=== PATIENT | female | born 1945 | race Caucasian/White ===

== ENCOUNTER 2019-05-16 12:30 | Emergency (ER) | payer MEDICARE ==
[2019-05-16 12:56] VITALS: TEMP 98.7
[2019-05-16 14:53] LABS: Appearance,Urine Clear (Clear); Bilirubin,Urine Negative (Negative); Blood,Urine Negative (Negative); Color,Urine Yellow; Glucose,Urine (UA) Negative (Negative); Ketones,Urine Negative (Negative); Leukocyte Esterase,Urine Negative (Negative); Nitrite,Urine Negative (Negative); PH, Urine 6.5 (5.0-8.0); Protein,Urine Negative (Negative); Urobilinogen,Urine <2.0 mg/dL (<2.0)
[2019-05-16] MEDS ORDERED: SODIUM CHLORIDE 0.9% 1,000 ML IV ONE ×2 (14:59)
--- NOTE | 2019-05-16 15:14 | ED ---
General Adult HPI - General Source: patient, RN notes reviewed, old records reviewed, Caregiver Mode of arrival: ambulatory Limitations: no limitations <Rebecca Wells - Last Filed: 05/16/19 18:13> <Tyler Padilla - Last Filed: 05/16/19 18:39> - General Chief complaint: Altered Mental Status Stated complaint: altered Time Seen by Provider: 05/16/19 14:43 - History of Present Illness Initial comments: Patient is a 73-year-old female who presents emergency department today with for evaluation for confusion and changes in mental status, as well as depression and suicidal thoughts. She presents today with her sranshio-cc-iol. Patient is here visiting her wqwufjpw-wo-vvs and son over the weekend. Patient's aalrrrff-bb-buo reports today she stated that she had seen things before which the vyupyfhp-ul-iaa stated she hasn't, smiiliar to "[facility] [employer]". Upon my walking into the room Patient reports that she is seen the signwriter prior to this, but cannot state where. This is untrue. Patient reportedly has had multiple falls within the past week as well as history of chronic insomnia. Patient reports that she has not been sleeping well for many weeks. She denies any past medical history of mental illnesses but does report that she feels that she is recently suffering from increased depression and anxiety. Patient reports that she wanted to take all of her pills that were recently prescribed for her with a suspect to be a kidney infection a few weeks ago. Patient states that she also felt that she was high on her opiates that she was prescribed. Patient states that she wants to take her pills in order to kill herself. She states this is unusual for her. She does not know previous suicidal intentions. (Rebecca Wells) - Related Data Home Medications Medication Instructions Recorded Confirmed Acetaminophen Tab [Tylenol Tab] 500 mg PO Q6HR PRN 05/16/19 05/16/19 Aspirin EC [Ecotrin Low Dose] 81 mg PO DAILY 05/16/19 05/16/19 Lisinopril [Zestril] 20 mg PO DAILY 05/16/19 05/16/19 amLODIPine [Norvasc] 10 mg PO DAILY 05/16/19 05/16/19 Allergies Allergy/AdvReac Type Severity Reaction Status Date / Time No Known Allergies Allergy Verified 05/16/19 14:40 Review of Systems ROS Other: All systems not noted in ROS Statement are negative. <Rebecca Wells - Last Filed: 05/16/19 18:13> ROS Other: All systems not noted in ROS Statement are negative. <Tyler Padilla - Last Filed: 05/16/19 18:39> ROS Statement: Those systems with pertinent positive or pertinent negative responses have been documented in the HPI. Past Medical History Past Medical History: Hypertension History of Any Multi-Drug Resistant Organisms: None Reported Past Surgical History: Cholecystectomy, Hysterectomy, Tubal Ligation Past Psychological History: No Psychological Hx Reported Smoking Status: Never smoker Past Alcohol Use History: None Reported Past Drug Use History: None Reported <Rebecca Wells - Last Filed: 05/16/19 18:13> General Exam Limitations: no limitations General appearance: alert, in no apparent distress Head exam: Present: atraumatic, normocephalic, normal inspection Eye exam: Present: normal appearance, PERRL, EOMI. Absent: scleral icterus, conjunctival injection, periorbital swelling ENT exam: Present: normal exam, mucous membranes moist Neck exam: Present: normal inspection. Absent: tenderness, meningismus, lymphadenopathy Respiratory exam: Present: normal lung sounds bilaterally. Absent: respiratory distress, wheezes, rales, rhonchi, stridor Cardiovascular Exam: Present: regular rate, normal rhythm, normal heart sounds. Absent: systolic murmur, diastolic murmur, rubs, gallop, clicks GI/Abdominal exam: Present: soft, normal bowel sounds. Absent: distended, tenderness, guarding, rebound, rigid Extremities exam: Present: normal inspection, full ROM, normal capillary refill. Absent: tenderness, pedal edema, joint swelling, calf tenderness Back exam: Present: normal inspection Neurological exam: Present: alert, oriented X3, CN II-XII intact Expanded Neurological exam: Present: other (Patient reports that she has been to places where she has not been. ) Patient oriented to: Present: person, place, time Speech: Present: fluid speech Cranial nerves: EOM's Intact: Normal, Facial Sensation: Normal Cerebellar function: Finger to Nose: Normal Upper motor neuron: Pronator Drift: Normal Sensory exam: Upper Extremity Light Touch: Normal, Lower Extremity Light Touch: Normal Motor strength exam: RUE: 5, LUE: 5, RLE: 5, LLE: 5 Eye Response: (4) open spontaneously Motor Response: (6) obeys commands Verbal Response: (5) oriented Benigno Total: 15 Psychiatric exam: Present: normal mood, depressed, other (delusions of Yvette Vu. ). Absent: normal affect Skin exam: Present: warm, dry, intact, normal color. Absent: rash <LashaeRebecca turk - Last Filed: 05/16/19 18:13> - General Exam Comments Initial Comments: Alert and oriented 73-year-old female. (PriscaRebecca daniels) Course Vital Signs 05/16/19 05/16/19 05/16/19 12:51 14:55 16:24 Temperature 98.7 F Pulse Rate 92 73 65 Respiratory 16 18 16 Rate Blood Pressure 162/99 168/89 165/83 O2 Sat by Pulse 98 95 95 Oximetry Medical Decision Making - Lab Data Result diagrams: 05/16/19 15:00 05/16/19 15:00 - Radiology Data Radiology results: report reviewed <Linda Wellsily - Last Filed: 05/16/19 18:13> - Lab Data Result diagrams: 05/16/19 15:00 05/16/19 15:00 <Tyler Padilla - Last Filed: 05/16/19 18:39> - Medical Decision Making Patient is a 73-year-old female who presents emergency [facility] status, Patient of the leg statements, stating she has been to the hospital for an she has not. Patient reportedly has had significant insomnia, and complains and expressive-like symptoms. Family states she does have a history of being significant anxiety as well. At this time Patient has a normal neurological exam. He is alert and oriented today time. Patient states that she otherwise has no significant pain. Patient is given full workup. CT of the brain shows some chronic ischemic changes but no acute process. EKG and blood work was reviewed and unremarkable. No signs of UTI. Patient's case discussed with family discussed that she is medically clear and I'll have the Patient evaluated by EPS due to the suicidal thoughts and delusions. I discussed the case with Dr. Padilla. (Rebecca Wells) Patient was evaluated by myself. She was evaluated at bedside. Patient is alert and oriented 4. She answers high-level order questions accurately. Patient has no neuro deficits at bedside. Patient has baseline gait without any ataxia. Discussed patient case in detail with family who reports that patient has been having bizarre speech saying that she is seen lot of people and objects in the past when in fact she hasn't. She's been suffering from insomnia. She however has no neuro deficits. She has stable hemodynamics. She is normal physical exam. Plan was discussed with patient and family who felt comfortable taking her home. She will live under the care of her son and [id number]. Patient did allegedly make suicidal comments. She was evaluated EPS was clear for discharge. Suicide precautions were discussed with patient and patient's fa rachel. They were amenable for outpatient discharge. Patient is given outpatient psychiatric resources. They told to follow-up with primary care physician. Patient told to promote good sleep hygiene along with odwh-vel-xwejzqf medications including Benadryl and melatonin. (Tyler Padilla) - Lab Data Lab Results 05/16/19 05/16/19 05/16/19 Range/Units 14:10 14:10 15:00 WBC (3.8-10.6) k/uL RBC (3.80-5.40) m/uL Hgb (11.4-16.0) gm/dL Hct (34.0-46.0) % MCV (80.0-100.0) fL MCH (25.0-35.0) pg MCHC (31.0-37.0) g/dL RDW (11.5-15.5) % Plt Count (150-450) k/uL Neutrophils % % Lymphocytes % % Monocytes % % Eosinophils % % Basophils % % Neutrophils # (1.3-7.7) k/uL Lymphocytes # (1.0-4.8) k/uL Monocytes # (0-1.0) k/uL Eosinophils # (0-0.7) k/uL Basophils # (0-0.2) k/uL PT (9.0-12.0) sec INR (<1.2) APTT (22.0-30.0) sec Sodium (137-145) mmol/L Potassium (3.5-5.1) mmol/L Chloride (98-107) mmol/L Carbon Dioxide (22-30) mmol/L Anion Gap mmol/L BUN (7-17) mg/dL Creatinine (0.52-1.04) mg/dL Est GFR (CKD-EPI)AfAm (>60 ml/min/1.73 sqM) Est GFR (CKD-EPI)NonAf (>60 ml/min/1.73 sqM) Glucose (74-99) mg/dL POC Glucose (mg/dL) (75-99) mg/dL POC [facility] ID Calcium (8.4-10.2) mg/dL Total Bilirubin (0.2-1.3) mg/dL AST (14-36) U/L ALT (9-52) U/L Alkaline Phosphatase (38-126) U/L Ammonia <9 (<30) umol/L Troponin I (0.000-0.034) ng/mL Total Protein (6.3-8.2) g/dL Albumin (3.5-5.0) g/dL Urine Color Yellow Urine Appearance Clear (Clear) Urine pH 6.5 (5.0-8.0) Ur Specific Harmony 1.010 (1.001-1.035) Urine Protein Negative (Negative) Urine Glucose (UA) Negative (Negative) Urine Ketones Negative (Negative) Urine Blood Negative (Negative) Urine Nitrite Negative (Negative) Urine Bilirubin Negative (Negative) Urine Urobilinogen <2.0 (<2.0) mg/dL Ur Leukocyte Esterase Negative (Negative) Urine Opiates Screen Not Detected (NotDetected) Ur Oxycodone Screen Not Detected (NotDetected) Urine Methadone Screen Not Detected (NotDetected) Ur Propoxyphene Screen Not Detected (NotDetected) Ur Barbiturates Screen Not Detected (NotDetected) U Tricyclic Antidepress Not Detected (NotDetected) Ur Phencyclidine Scrn Not Detected (NotDetected) Ur Amphetamines Screen Not Detected (NotDetected) U Methamphetamines Scrn Not Detected (NotDetected) U Benzodiazepines Scrn Not Detected (NotDetected) Urine Cocaine Screen Not Detected (NotDetected) U Marijuana (THC) Screen Not Detected (NotDetected) Serum Alcohol mg/dL 05/16/19 05/16/19 05/16/19 Range/Units 15:00 15:00 15:00 WBC 9.3 (3.8-10.6) k/uL RBC 4.90 (3.80-5.40) m/uL Hgb 14.9 (11.4-16.0) gm/dL Hct 45.4 (34.0-46.0) % MCV 92.5 (80.0-100.0) fL MCH 30.3 (25.0-35.0) pg MCHC 32.7 (31.0-37.0) g/dL RDW 13.9 (11.5-15.5) % Plt Count 248 (150-450) k/uL Neutrophils % 81 % Lymphocytes % 12 % Monocytes % 5 % Eosinophils % 1 % Basophils % 0 % Neutrophils # 7.5 (1.3-7.7) k/uL Lymphocytes # 1.2 (1.0-4.8) k/uL Monocytes # 0.4 (0-1.0) k/uL Eosinophils # 0.1 (0-0.7) k/uL Basophils # 0.0 (0-0.2) k/uL PT 10.4 (9.0-12.0) sec INR 1.0 (<1.2) APTT 22.1 (22.0-30.0) sec Sodium 136 L (137-145) mmol/L Potassium 4.6 (3.5-5.1) mmol/L Chloride 100 (98-107) mmol/L Carbon Dioxide 27 (22-30) mmol/L Anion Gap 9 mmol/L BUN 18 H (7-17) mg/dL Creatinine 0.65 (0.52-1.04) mg/dL Est GFR (CKD-EPI)AfAm >90 (>60 ml/min/1.73 sqM) Est GFR (CKD-EPI)NonAf 87 (>60 ml/min/1.73 sqM) Glucose 115 H (74-99) mg/dL POC Glucose (mg/dL) (75-99) mg/dL POC [facility] ID Calcium 9.6 (8.4-10.2) mg/dL Total Bilirubin 0.9 (0.2-1.3) mg/dL AST 27 (14-36) U/L ALT 35 (9-52) U/L Alkaline Phosphatase 79 (38-126) U/L Ammonia (<30) umol/L Troponin I (0.000-0.034) ng/mL Total Protein 6.9 (6.3-8.2) g/dL Albumin 4.3 (3.5-5.0) g/dL Urine Color Urine Appearance (Clear) Urine pH (5.0-8.0) Ur Specific Harmony (1.001-1.035) Urine Protein (Negative) Urine Glucose (UA) (Negative) Urine Ketones (Negative) Urine Blood (Negative) Urine Nitrite (Negative) Urine Bilirubin (Negative) Urine Urobilinogen (<2.0) mg/dL Ur Leukocyte Esterase (Negative) Urine Opiates Screen (NotDetected) Ur Oxycodone Screen (NotDetected) Urine Methadone Screen (NotDetected) Ur Propoxyphene Screen (NotDetected) Ur Barbiturates Screen (NotDetected) U Tricyclic Antidepress (NotDetected) Ur Phencyclidine Scrn (NotDetected) Ur Amphetamines Screen (NotDetected) U Methamphetamines Scrn (NotDetected) U Benzodiazepines Scrn (NotDetected) Urine Cocaine Screen (NotDetected) U Marijuana (THC) Screen (NotDetected) Serum Alcohol <10 mg/dL 05/16/19 05/16/19 Range/Units 15:00 16:29 WBC (3.8-10.6) k/uL RBC (3.80-5.40) m/uL Hgb (11.4-16.0) gm/dL Hct (34.0-46.0) % MCV (80.0-100.0) fL MCH (25.0-35.0) pg MCHC (31.0-37.0) g/dL RDW (11.5-15.5) % Plt Count (150-450) k/uL Neutrophils % % Lymphocytes % % Monocytes % % Eosinophils % % Basophils % % Neutrophils # (1.3-7.7) k/uL Lymphocytes # (1.0-4.8) k/uL Monocytes # (0-1.0) k/uL Eosinophils # (0-0.7) k/uL Basophils # (0-0.2) k/uL PT (9.0-12.0) sec INR (<1.2) APTT (22.0-30.0) sec Sodium (137-145) mmol/L Potassium (3.5-5.1) mmol/L Chloride (98-107) mmol/L Carbon Dioxide (22-30) mmol/L Anion Gap mmol/L BUN (7-17) mg/dL Creatinine (0.52-1.04) mg/dL Est GFR (CKD-EPI)AfAm (>60 ml/min/1.73 sqM) Est GFR (CKD-EPI)NonAf (>60 ml/min/1.73 sqM) Glucose (74-99) mg/dL POC Glucose (mg/dL) 91 (75-99) mg/dL POC [facility] ID Chata Blevins Calcium (8.4-10.2) mg/dL Total Bilirubin (0.2-1.3) mg/dL AST (14-36) U/L ALT (9-52) U/L Alkaline Phosphatase (38-126) U/L Ammonia (<30) umol/L Troponin I <0.012 (0.000-0.034) ng/mL Total Protein (6.3-8.2) g/dL Albumin (3.5-5.0) g/dL Urine Color Urine Appearance (Clear) Urine pH (5.0-8.0) Ur Specific Harmony (1.001-1.035) Urine Protein (Negative) Urine Glucose (UA) (Negative) Urine Ketones (Negative) Urine Blood (Negative) Urine Nitrite (Negative) Urine Bilirubin (Negative) Urine Urobilinogen (<2.0) mg/dL Ur Leukocyte Esterase (Negative) Urine Opiates Screen (NotDetected) Ur Oxycodone Screen (NotDetected) Urine Methadone Screen (NotDetected) Ur Propoxyphene Screen (NotDetected) Ur Barbiturates Screen (NotDetected) U Tricyclic Antidepress (NotDetected) Ur Phencyclidine Scrn (NotDetected) Ur Amphetamines Screen (NotDetected) U Methamphetamines Scrn (NotDetected) U Benzodiazepines Scrn (NotDetected) Urine Cocaine Screen (NotDetected) U Marijuana (THC) Screen (NotDetected) Serum Alcohol mg/dL 05/16/19 17:31 EKG shows sinus rhythm. Ventricular septal itching or complexes occasional PVCs. Moderate voltage criteria for LVH. Portable an EKG noted. Ventricular rate of 77 beats were minute period. Intervals 160 most seconds. QS duration 70 ms. QT QTC 390/441 ms. (Rebecca Wells) - Radiology Data CT of the brain shows chronic ischemic changes. Chest x-ray is negative for any acute cardio pulmonary process. (Rebecca Wells) Disposition <Rebecca Wells - Last Filed: 05/16/19 18:13> Is patient prescribed a controlled substance at d/c from ED?: No Time of Disposition: 18:39 <Tyler Padilla - Last Filed: 05/16/19 18:39> Clinical Impression: Altered mental status, Insomnia Disposition: HOME SELF-CARE Condition: Good Instructions (If sedation given, give patient instructions): Insomnia (ED) Referrals: Nonstaff,Physician [Primary Care Provider] - 1-2 days
[2019-05-16 15:18] LABS: Basophils % (A) 0 %; Eosinophils # (A) 0.1 k/uL (0-0.7); Eosinophils % (A) 1 %; HCT 45.4 % (34.0-46.0); HGB 14.9 gm/dL (11.4-16.0); Lymphocytes # (A) 1.2 k/uL (1.0-4.8); Lymphocytes % (A) 12 %; MCH 30.3 pg (25.0-35.0); MCHC 32.7 g/dL (31.0-37.0); MCV 92.5 fL (80.0-100.0); Monocytes # (A) 0.4 k/uL (0-1.0); Monocytes % (A) 5 %; Neutrophils # (A) 7.5 k/uL (1.3-7.7); Neutrophils % (A) 81 %; Platelet Count 248 k/uL (150-450); RDW 13.9 % (11.5-15.5); WBC 9.3 k/uL (3.8-10.6)
[2019-05-16 15:24] LABS: Cocaine Screen,Urine Not Detected (NotDetected); Opiate Screen,Urine Not Detected (NotDetected); Phencyclidine Screen,Urine Not Detected (NotDetected); Urn Cannabinoid Scrn Not Detected (NotDetected)
[2019-05-16 15:25] LABS: Amphetamine Screen,Urine Not Detected (NotDetected); Barbiturate Screen,Urine Not Detected (NotDetected); Benzodiazepines Screen,Urine Not Detected (NotDetected); Methadone Screen, Urine Not Detected (NotDetected); Oxycodone Screen, Urine Not Detected (NotDetected); Tricyclic Antidepressant,Urine Not Detected (NotDetected)
[2019-05-16 15:26] LABS: ALT 35 U/L (9-52); AST 27 U/L (14-36); African American GFR (CKD) >90 (>60 ml/min/1.73 sqM); Albumin 4.3 g/dL (3.5-5.0); Alcohol <10 mg/dL; Alkaline Phosphatase 79 U/L (38-126); Anion Gap 9 mmol/L; Blood Urea Nitrogen 18 mg/dL (7-17); Calcium 9.6 mg/dL (8.4-10.2); Carbon Dioxide 27 mmol/L (22-30); Chloride 100 mmol/L (98-107); Glucose 115 mg/dL (74-99); Potassium 4.6 mmol/L (3.5-5.1); Sodium 136 mmol/L (137-145); Total Bilirubin 0.9 mg/dL (0.2-1.3); Total Protein 6.9 g/dL (6.3-8.2)
[2019-05-16 15:27] LABS: Partial Thromboplastin Time 22.1 sec (22.0-30.0); Prothrombin Time 10.4 sec (9.0-12.0)
--- NOTE | 2019-05-16 16:03 | CT ---
EXAMINATION TYPE: CT brain wo con DATE OF EXAM: 05/16/2019 COMPARISON: None INDICATION: Altered mental status. DLP: 1105.4 mGycm, Automated exposure control for dose reduction was used. CONTRAST: None CT of the brain is performed utilizing 3 mm thick sections through the posterior fossa and 3 mm thick sections through the remaining calvarium. Study is performed within 24 hours of arrival to the hosp [facility]. No abnormal hyperdensity is present to suggest an acute intracranial hemorrhage. No mass lesion is evident. No acute infarcts are evident. I'll periventricular white matter hypodensity is present, likely on th e basis of chronic white matter ischemic changes. Ventricles and sulci are appropriate for the patient age. Paranasal sinuses and mastoid air cells within the [id number] are clear. IMPRESSIONS: 1. Mild chronic appearing white matter ischemic changes.
[2019-05-16 16:26] VITALS: BP 165/83; PULSE 65; RESP 16
[2019-05-16 16:30] LABS: Glucose,Whole Blood 91 mg/dL (75-99)
--- NOTE | 2019-05-16 16:31 | XR ---
EXAMINATION TYPE: XR chest 2V DATE OF EXAM: 05/16/2019 COMPARISON: None INDICATION: Altered mental status TECHNIQUE: Frontal and lateral views of the chest are obtained. FINDINGS: The heart size is normal. The pulmonary vasculature is normal. The lungs are clear. IMPRESSION: 1. No acute pulmonary process.
== END 2019-05-16 19:35 | disposition home or self-care (01) ==
LOC: EC 12:30
DX: R41.82 Altered mental status, unspecified (principal); G47.00 Insomnia, unspecified; R93.89 Abnormal findings on diagnostic imaging of other specified body structures; R45.851 Suicidal ideations; F32.9 Major depressive disorder, single episode, unspecified; R29.6 Repeated falls; I10 Essential (primary) hypertension; Z79.82 Long term (current) use of aspirin; Z79.899 Other long term (current) drug therapy
CPT/HCPCS: 36415; 80053; 82140; 84484; 85025; 85610; 85730; 81003; 80306; 71046; 70450; 99285; 96360; 96361 ×2; G0480; 80320

== ENCOUNTER 2019-05-19 07:52 | Inpatient (IN) | payer MEDICARE ==
[2019-05-19] MEDS ORDERED: SODIUM CHLORIDE 0.9% 1,000 ML IV ONE (08:22)
[2019-05-19] MEDS ORDERED: SODIUM CHLORIDE 0.9% 500 ML 500 ML IV ONE (08:22)
[2019-05-19 08:43] LABS: Glucose,Whole Blood 118 mg/dL (75-99)
[2019-05-19 08:52] LABS: Basophils % (A) 0 %; Eosinophils # (A) 0.1 k/uL (0-0.7); Eosinophils % (A) 1 %; HCT 45.9 % (34.0-46.0); HGB 15.2 gm/dL (11.4-16.0); Lymphocytes % (A) 11 %; MCH 31.1 pg (25.0-35.0); Mean Platelet Volume 6.5; Monocytes # (A) 0.4 k/uL (0-1.0); Monocytes % (A) 4 %; Neutrophils # (A) 7.3 k/uL (1.3-7.7); Neutrophils % (A) 83 %; Platelet Count 228 k/uL (150-450); RBC 4.88 m/uL (3.80-5.40); RDW 13.1 % (11.5-15.5); WBC 8.8 k/uL (3.8-10.6)
[2019-05-19 09:05] LABS: ALT 32 U/L (9-52); AST 36 U/L (14-36); African American GFR (CKD) >90 (>60 ml/min/1.73 sqM); Albumin 4.3 g/dL (3.5-5.0); Alkaline Phosphatase 65 U/L (38-126); Anion Gap 10 mmol/L; Blood Urea Nitrogen 17 mg/dL (7-17); Calcium 9.4 mg/dL (8.4-10.2); Carbon Dioxide 26 mmol/L (22-30); Chloride 102 mmol/L (98-107); Creatine Kinase 56 U/L (30-135); Glucose 122 mg/dL (74-99); Sodium 138 mmol/L (137-145); Total Bilirubin 1.1 mg/dL (0.2-1.3); Total Protein 7.1 g/dL (6.3-8.2)
[2019-05-19 09:06] LABS: INR 0.9 (<1.2); Prothrombin Time 10.2 sec (9.0-12.0)
--- NOTE | 2019-05-19 09:08 | ED ---
Altered Mental Status HPI - General Chief Complaint: Altered Mental Status Stated Complaint: Confusion Time Seen by Provider: 05/19/19 08:10 Source: patient, family, RN notes reviewed, old records reviewed Mode of arrival: ambulatory Limitations: altered mental status - History of Present Illness Initial Comments: This is a 73-year-old female was brought in by her family for evaluation for altered mental status. He states she's been having insomnia not sleeping very well she is state he has she sees people who weren't there. He insisted that she needs to go back to a restaurant to prove that her. Upon my evaluation the patient insists that she is not May before and knows me and I have asked her same questions alive never met the patient before. No reports of any trauma no fevers chills nausea vomiting sweats. The patient was here 3 days ago for evaluation was discharged from patient they've been unable in with patient's primary care doctor who is currently apparently on vacation. Per family the patient was recently given for new medications are unaware with the medications were. He felt one was for urinary tract infection. MD Complaint: altered mental status - Related Data Home Medications Medication Instructions Recorded Confirmed Aspirin EC [Ecotrin Low Dose] 81 mg PO DAILY 05/16/19 05/19/19 Lisinopril [Zestril] 20 mg PO DAILY 05/16/19 05/19/19 amLODIPine [Norvasc] 10 mg PO DAILY 05/16/19 05/19/19 Latanoprost [Xalatan 0.005%] 1 drop BOTH EYES HS 05/19/19 05/19/19 Allergies Allergy/AdvReac Type Severity Reaction Status Date / Time No Known Allergies Allergy Verified 05/19/19 08:46 Review of Systems ROS Statement: Those systems with pertinent positive or pertinent negative responses have been documented in the HPI. ROS Other: All systems not noted in ROS Statement are negative. Past Medical History Past Medical History: Hypertension Additional Past Medical History / Comment(s): glaucoma History of Any Multi-Drug Resistant Organisms: None Reported Past Surgical History: Cholecystectomy, Hysterectomy, Tubal Ligation Past Psychological History: No Psychological Hx Reported Smoking Status: Never smoker Past Alcohol Use History: None Reported Past Drug Use History: None Reported General Exam - General Exam Comments Initial Comments: This is a well-developed with sciatica. Female who is awake alert and oriented 3 but does perseverate with questioning Limitations: altered mental status General appearance: alert, in no apparent distress Head exam: Present: atraumatic, normocephalic, normal inspection Eye exam: Present: normal appearance, PERRL, EOMI. Absent: scleral icterus, conjunctival injection, periorbital swelling ENT exam: Present: mucous membranes dry Neck exam: Present: normal inspection. Absent: tenderness, meningismus, lymphadenopathy Respiratory exam: Present: normal lung sounds bilaterally. Absent: respiratory distress, wheezes, rales, rhonchi, stridor Cardiovascular Exam: Present: regular rate, normal rhythm, normal heart sounds. Absent: systolic murmur, diastolic murmur, rubs, gallop, clicks GI/Abdominal exam: Present: soft, normal bowel sounds. Absent: distended, tenderness, guarding, rebound, rigid Extremities exam: Present: normal inspection, full ROM, normal capillary refill. Absent: tenderness, pedal edema, joint swelling, calf tenderness Back exam: Present: normal inspection Neurological exam: Present: alert, oriented X3, CN II-XII intact Psychiatric exam: Present: other (She does demonstrate a flight of ideas.) Skin exam: Present: warm, dry, intact, normal color. Absent: rash Course Vital Signs 05/19/19 05/19/19 05/19/19 07:55 09:00 09:30 Temperature 98.4 F Pulse Rate 87 77 71 Respiratory 18 19 16 Rate Blood Pressure 160/86 145/82 158/86 O2 Sat by Pulse 98 97 98 Oximetry 05/19/19 05/19/19 10:00 10:30 Temperature Pulse Rate 66 65 Respiratory 18 19 Rate Blood Pressure 111/76 118/89 O2 Sat by Pulse 99 99 Oximetry Medical Decision Making - Medical Decision Making Patient was evaluated by psychiatric service and will be admitted for inpatient treatment. - Lab Data Result diagrams: 05/19/19 08:36 05/19/19 08:36 Lab Results 05/19/19 05/19/19 05/19/19 Range/Units 08:31 08:36 08:36 WBC 8.8 (3.8-10.6) k/uL RBC 4.88 (3.80-5.40) m/uL Hgb 15.2 (11.4-16.0) gm/dL Hct 45.9 (34.0-46.0) % MCV 94.0 (80.0-100.0) fL MCH 31.1 (25.0-35.0) pg MCHC 33.0 (31.0-37.0) g/dL RDW 13.1 (11.5-15.5) % Plt Count 228 (150-450) k/uL Neutrophils % 83 % Lymphocytes % 11 % Monocytes % 4 % Eosinophils % 1 % Basophils % 0 % Neutrophils # 7.3 (1.3-7.7) k/uL Lymphocytes # 1.0 (1.0-4.8) k/uL Monocytes # 0.4 (0-1.0) k/uL Eosinophils # 0.1 (0-0.7) k/uL Basophils # 0.0 (0-0.2) k/uL PT (9.0-12.0) sec INR (<1.2) APTT (22.0-30.0) sec Sodium (137-145) mmol/L Potassium (3.5-5.1) mmol/L Chloride (98-107) mmol/L Carbon Dioxide (22-30) mmol/L Anion Gap mmol/L BUN (7-17) mg/dL Creatinine (0.52-1.04) mg/dL Est GFR (CKD-EPI)AfAm (>60 ml/min/1.73 sqM) Est GFR (CKD-EPI)NonAf (>60 ml/min/1.73 sqM) Glucose (74-99) mg/dL POC Glucose (mg/dL) 118 H (75-99) mg/dL POC Glu Automatic Vulcanizing Lead Operator [place] Calcium (8.4-10.2) mg/dL Magnesium (1.6-2.3) mg/dL Total Bilirubin (0.2-1.3) mg/dL AST (14-36) U/L ALT (9-52) U/L Alkaline Phosphatase (38-126) U/L Ammonia <9 (<30) umol/L Creatine Kinase (30-135) U/L Troponin I (0.000-0.034) ng/mL Total Protein (6.3-8.2) g/dL Albumin (3.5-5.0) g/dL TSH (0.465-4.680) mIU/L Urine Color Urine Appearance (Clear) Urine pH (5.0-8.0) Ur Specific [place] (1.001-1.035) Urine Protein (Negative) Urine Glucose (UA) (Negative) Urine Ketones (Negative) Urine Blood (Negative) Urine Nitrite (Negative) Urine Bilirubin (Negative) Urine Urobilinogen (<2.0) mg/dL Ur Leukocyte Esterase (Negative) Urine Opiates Screen (NotDetected) Ur Oxycodone Screen (NotDetected) Urine Methadone Screen (NotDetected) Ur Propoxyphene Screen (NotDetected) Ur Barbiturates Screen (NotDetected) U Tricyclic Antidepress (NotDetected) Ur Phencyclidine Scrn (NotDetected) Ur Amphetamines Screen (NotDetected) U Methamphetamines Scrn (NotDetected) U Benzodiazepines Scrn (NotDetected) Urine Cocaine Screen (NotDetected) U Marijuana (THC) Screen (NotDetected) 05/19/19 05/19/19 05/19/19 Range/Units 08:36 08:36 08:36 WBC (3.8-10.6) k/uL RBC (3.80-5.40) m/uL Hgb (11.4-16.0) gm/dL Hct (34.0-46.0) % MCV (80.0-100.0) fL MCH (25.0-35.0) pg MCHC (31.0-37.0) g/dL RDW (11.5-15.5) % Plt Count (150-450) k/uL Neutrophils % % Lymphocytes % % Monocytes % % Eosinophils % % Basophils % % Neutrophils # (1.3-7.7) k/uL Lymphocytes # (1.0-4.8) k/uL Monocytes # (0-1.0) k/uL Eosinophils # (0-0.7) k/uL Basophils # (0-0.2) k/uL PT 10.2 (9.0-12.0) sec INR 0.9 (<1.2) APTT 21.5 L (22.0-30.0) sec Sodium 138 (137-145) mmol/L Potassium 5.0 (3.5-5.1) mmol/L Chloride 102 (98-107) mmol/L Carbon Dioxide 26 (22-30) mmol/L Anion Gap 10 mmol/L BUN 17 (7-17) mg/dL Creatinine 0.55 (0.52-1.04) mg/dL Est GFR (CKD-EPI)AfAm >90 (>60 ml/min/1.73 sqM) Est GFR (CKD-EPI)NonAf >90 (>60 ml/min/1.73 sqM) Glucose 122 H (74-99) mg/dL POC Glucose (mg/dL) (75-99) mg/dL POC Glu Automatic Vulcanizing Lead Operator [place] Calcium 9.4 (8.4-10.2) mg/dL Magnesium 2.0 (1.6-2.3) mg/dL Total Bilirubin 1.1 (0.2-1.3) mg/dL AST 36 (14-36) U/L ALT 32 (9-52) U/L Alkaline Phosphatase 65 (38-126) U/L Ammonia (<30) umol/L Creatine Kinase 56 (30-135) U/L Troponin I <0.012 (0.000-0.034) ng/mL Total Protein 7.1 (6.3-8.2) g/dL Albumin 4.3 (3.5-5.0) g/dL TSH 2.530 (0.465-4.680) mIU/L Urine Color Urine Appearance (Clear) Urine pH (5.0-8.0) Ur Specific [place] (1.001-1.035) Urine Protein (Negative) Urine Glucose (UA) (Negative) Urine Ketones (Negative) Urine Blood (Negative) Urine Nitrite (Negative) Urine Bilirubin (Negative) Urine Urobilinogen (<2.0) mg/dL Ur Leukocyte Esterase (Negative) Urine Opiates Screen (NotDetected) Ur Oxycodone Screen (NotDetected) Urine Methadone Screen (NotDetected) Ur Propoxyphene Screen (NotDetected) Ur Barbiturates Screen (NotDetected) U Tricyclic Antidepress (NotDetected) Ur Phencyclidine Scrn (NotDetected) Ur Amphetamines Screen (NotDetected) U Methamphetamines Scrn (NotDetected) U Benzodiazepines Scrn (NotDetected) Urine Cocaine Screen (NotDetected) U Marijuana (THC) Screen (NotDetected) 05/19/19 Range/Units 09:46 WBC (3.8-10.6) k/uL RBC (3.80-5.40) m/uL Hgb (11.4-16.0) gm/dL Hct (34.0-46.0) % MCV (80.0-100.0) fL MCH (25.0-35.0) pg MCHC (31.0-37.0) g/dL RDW (11.5-15.5) % Plt Count (150-450) k/uL Neutrophils % % Lymphocytes % % Monocytes % % Eosinophils % % Basophils % % Neutrophils # (1.3-7.7) k/uL Lymphocytes # (1.0-4.8) k/uL Monocytes # (0-1.0) k/uL Eosinophils # (0-0.7) k/uL Basophils # (0-0.2) k/uL PT (9.0-12.0) sec INR (<1.2) APTT (22.0-30.0) sec Sodium (137-145) mmol/L Potassium (3.5-5.1) mmol/L Chloride (98-107) mmol/L Carbon Dioxide (22-30) mmol/L Anion Gap mmol/L BUN (7-17) mg/dL Creatinine (0.52-1.04) mg/dL Est GFR (CKD-EPI)AfAm (>60 ml/min/1.73 sqM) Est GFR (CKD-EPI)NonAf (>60 ml/min/1.73 sqM) Glucose (74-99) mg/dL POC Glucose (mg/dL) (75-99) mg/dL POC Glu Automatic Vulcanizing Lead Operator [place] Calcium (8.4-10.2) mg/dL Magnesium (1.6-2.3) mg/dL Total Bilirubin (0.2-1.3) mg/dL AST (14-36) U/L ALT (9-52) U/L Alkaline Phosphatase (38-126) U/L Ammonia (<30) umol/L Creatine Kinase (30-135) U/L Troponin I (0.000-0.034) ng/mL Total Protein (6.3-8.2) g/dL Albumin (3.5-5.0) g/dL TSH (0.465-4.680) mIU/L Urine Color Light Yellow Urine Appearance Clear (Clear) Urine pH 7.0 (5.0-8.0) Ur Specific [place] 1.005 (1.001-1.035) Urine Protein Negative (Negative) Urine Glucose (UA) Negative (Negative) Urine Ketones Negative (Negative) Urine Blood Negative (Negative) Urine Nitrite Negative (Negative) Urine Bilirubin Negative (Negative) Urine Urobilinogen <2.0 (<2.0) mg/dL Ur Leukocyte Esterase Negative (Negative) Urine Opiates Screen Not Detected (NotDetected) Ur Oxycodone Screen Not Detected (NotDetected) Urine Methadone Screen Not Detected (NotDetected) Ur Propoxyphene Screen Not Detected (NotDetected) Ur Barbiturates Screen Not Detected (NotDetected) U Tricyclic Antidepress Not Detected (NotDetected) Ur Phencyclidine Scrn Not Detected (NotDetected) Ur Amphetamines Screen Not Detected (NotDetected) U Methamphetamines Scrn Not Detected (NotDetected) U Benzodiazepines Scrn Not Detected (NotDetected) Urine Cocaine Screen Not Detected (NotDetected) U Marijuana (THC) Screen Not Detected (NotDetected) - EKG Data -: EKG Interpreted by Me EKG shows normal: sinus rhythm (Sinus rhythm a 73. We'll 168 QRS duration 86 QT since QTC 374/417 left exodeviation LVH nonspecific anterior changes) - Radiology Data Radiology results: report reviewed (I did review the imaging and reports no acute findings), image reviewed Disposition Clinical Impression: Delirium due to general medical condition, Psychosis Disposition: TRANSFER TO PSYCH HOSP/UNIT Condition: Stable Referrals: Nonstaff,Physician [Primary Care Provider] - 1-2 days
[2019-05-19 09:16] LABS: Partial Thromboplastin Time 21.5 sec (22.0-30.0)
[2019-05-19 10:01] LABS: Appearance,Urine Clear (Clear); Bilirubin,Urine Negative (Negative); Blood,Urine Negative (Negative); Color,Urine Light Yellow; Glucose,Urine (UA) Negative (Negative); Ketones,Urine Negative (Negative); Leukocyte Esterase,Urine Negative (Negative); Nitrite,Urine Negative (Negative); Protein,Urine Negative (Negative); Specific Gravity,Urine 1.005 (1.001-1.035); Urobilinogen,Urine <2.0 mg/dL (<2.0)
[2019-05-19 10:13] LABS: Amphetamine Screen,Urine Not Detected (NotDetected); Barbiturate Screen,Urine Not Detected (NotDetected); Benzodiazepines Screen,Urine Not Detected (NotDetected); Cocaine Screen,Urine Not Detected (NotDetected); Methadone Screen, Urine Not Detected (NotDetected); Opiate Screen,Urine Not Detected (NotDetected); Oxycodone Screen, Urine Not Detected (NotDetected); Phencyclidine Screen,Urine Not Detected (NotDetected); Tricyclic Antidepressant,Urine Not Detected (NotDetected); Urn Cannabinoid Scrn Not Detected (NotDetected)
--- NOTE | 2019-05-19 10:25 | XR ---
EXAMINATION TYPE: XR chest 2V DATE OF EXAM: 05/19/2019 COMPARISON: 05/16/2019 INDICATION: Confusion TECHNIQUE: Frontal and lateral views of the chest are obtained. FINDINGS: The heart size is normal. The pulmonary vasculature is normal. The lungs are clear. IMPRESSION: 1. No acute pulmonary process.
[2019-05-19] MEDS ORDERED: MAG HYDROX/AL HYDROX/SIMETH 30 ML CUP PO PRN (13:12)
[2019-05-19] MEDS ORDERED: MAGNESIUM HYDROXIDE 2,400 MG/10 ML CUP PO PRN (13:12)
[2019-05-19] MEDS ORDERED: ACETAMINOPHEN TAB 325 MG TAB PO PRN (13:12)
[2019-05-19 13:45] VITALS: BMI 26.6
--- NOTE | 2019-05-19 15:59 | P.CONS ---
History of Present Illness - Reason for Consult Consult date: 05/19/19 - Chief Complaint Medical management - History of Present Illness Patient is a 73-year-old white female admitted to the hospital with altered mental status. She has been complaining of insomnia. She attributes her delusion to insomnia. At the time of examination patient is awake alert oriented 3 and does not appear to be in distress. She denies chest pain, no abdominal pain, no nausea no vomiting no shortness of breath. Review of Systems 10 systems reviewed pertinent positive and negative findings as in HPI, no chest pain or abdominal pain. Past Medical History Past Medical History: Hypertension Additional Past Medical History / Comment(s): glaucoma History of Any Multi-Drug Resistant Organisms: None Reported Past Surgical History: Cholecystectomy, Hysterectomy, Tubal Ligation Past Psychological History: No Psychological Hx Reported Smoking Status: Never smoker Past Alcohol Use History: None Reported Past Drug Use History: None Reported Medications and Allergies Home Medications Medication Instructions Recorded Confirmed Type Aspirin EC [Ecotrin Low Dose] 81 mg PO DAILY 05/16/19 05/19/19 History Lisinopril [Zestril] 20 mg PO DAILY 05/16/19 05/19/19 History amLODIPine [Norvasc] 10 mg PO DAILY 05/16/19 05/19/19 History Latanoprost [Xalatan 0.005%] 1 drop BOTH EYES HS 05/19/19 05/19/19 History Allergies Allergy/AdvReac Type Severity Reaction Status Date / Time No Known Allergies Allergy Verified 05/19/19 14:07 Physical Exam Vitals: Vital Signs Temp Pulse Pulse Resp BP BP Pulse Ox 05/19/19 13:42 97.3 F L 75 20 173/93 97 05/19/19 13:22 97.3 F L 75 20 173/93 97 05/19/19 13:03 74 18 170/80 99 05/19/19 10:30 65 19 118/89 99 05/19/19 10:00 66 18 111/76 99 05/19/19 09:30 71 16 158/86 98 05/19/19 09:00 77 19 145/82 97 05/19/19 07:55 98.4 F 87 18 160/86 98 Intake and Output 05/19/19 05/19/19 05/19/19 06:59 14:59 22:59 Other: Weight 64 kg Constitutional: No acute distress, conversant, pleasant Eyes: Anicteric sclerae, PERRLA ENMT: NC/AT,Oropharynx clear, no erythema, exudates Neck:Supple, No thyromegaly Lungs: Clear to auscultation, Clear to percussion, Normal respiratory effort Cardiovascular: Heart regular in rate and rhythm, No murmurs, gallops, or rubs no peripheral edema Abdominal: Soft Nontender, nom distended, no guarding, no rebound or rigidity, Normoactive bowel sounds Skin: Normal temperature, tone, texture, turgor, No induration Extremities:No digital cyanosis No clubbing, Pedal pulses intact and symmetric al Radial pulses intact and symmetrical Normal gait and station, No calf tenderness Psychiatric: Alert and oriented to person, place and time, Appropriate affect Intact judgement Neuro: Muscles Strength 5/5 in all 4 extremities, Sensation to light touch grossly present throughout, Cranial nerves II-XII grossly intact. No focal sensory deficits Results CBC & Chem 7: 05/19/19 08:36 05/19/19 08:36 Labs: Abnormal Lab Results - Last 24 Hours (Table) 05/19/19 05/19/19 05/19/19 Range/Units 08:31 08:36 08:36 APTT 21.5 L (22.0-30.0) sec Glucose 122 H (74-99) mg/dL POC Glucose (mg/dL) 118 H (75-99) mg/dL Assessment and Plan Plan: 1. Delirium with psychoses: Psychiatry managing. 2. Essential hypertension: Continue lisinopril and Norvasc 3. History of glaucoma: Continue latanoprost Thank for the consultation
[2019-05-19] MEDS: LATANOPROST 0.005% OPHTH DROPS 2.5 ML BTL BOTH EYES SCH (21:24)
[2019-05-19] MEDS ORDERED: MELATONIN 3 MG TABLET PO SCH (22:30)
[2019-05-19] MEDS ORDERED: POLYETHYLENE GLYCOL 3350 17 GM POWD.PACK PO PRN (23:50)
[2019-05-20] MEDS: DOCUSATE 100 MG CAP PO SCH ×3 (08:25→20:33)
[2019-05-20] MEDS: ASPIRIN 81 MG PO SCH (08:25)
[2019-05-20] MEDS: LISINOPRIL 20 MG TAB PO SCH (08:25)
[2019-05-20] MEDS: amLODIPine 10 MG TAB PO SCH (08:25)
[2019-05-20 08:56] LABS: Basophils % (A) 0 %; Eosinophils # (A) 0.1 k/uL (0-0.7); Eosinophils % (A) 1 %; HCT 45.4 % (34.0-46.0); HGB 14.5 gm/dL (11.4-16.0); Lymphocytes # (A) 1.3 k/uL (1.0-4.8); Lymphocytes % (A) 16 %; MCH 30.4 pg (25.0-35.0); MCHC 31.9 g/dL (31.0-37.0); MCV 95.3 fL (80.0-100.0); Mean Platelet Volume 6.7; Monocytes # (A) 0.3 k/uL (0-1.0); Monocytes % (A) 4 %; Neutrophils # (A) 6.1 k/uL (1.3-7.7); Neutrophils % (A) 78 %; Platelet Count 222 k/uL (150-450); RBC 4.76 m/uL (3.80-5.40); RDW 13.1 % (11.5-15.5); WBC 7.9 k/uL (3.8-10.6)
[2019-05-20 09:27] LABS: ALT 25 U/L (9-52); AST 24 U/L (14-36); African American GFR (CKD) >90 (>60 ml/min/1.73 sqM); Alkaline Phosphatase 66 U/L (38-126); Anion Gap 7 mmol/L; Blood Urea Nitrogen 15 mg/dL (7-17); Calcium 9.2 mg/dL (8.4-10.2); Carbon Dioxide 29 mmol/L (22-30); Chloride 101 mmol/L (98-107); Cholesterol 208 mg/dL (<200); Glucose 191 mg/dL (74-99); HDL Cholesterol 86 mg/dL (40-60); LDL Cholesterol,Calculated 114 mg/dL (0-99); Potassium 5.1 mmol/L (3.5-5.1); Sodium 137 mmol/L (137-145); Total Bilirubin 0.9 mg/dL (0.2-1.3); Total Protein 6.5 g/dL (6.3-8.2); Triglycerides 42 mg/dL (<150)
--- NOTE | 2019-05-20 11:39 | P.HP ---
Psychiatric H&P - . History & Physical: Allergies Allergy/AdvReac Type Severity Reaction Status Date / Time No Known Allergies Allergy Verified 05/19/19 14:07 Vital Signs Temp 97.3 F L 05/19/19 13:42 Pulse 118 H 05/19/19 20:13 Resp 20 05/19/19 13:42 BP 108/68 05/19/19 20:13 Pulse Ox 97 05/19/19 13:42 Intake & Output 05/19/19 05/20/19 05/20/19 18:59 06:59 18:59 Weight 64 kg Laboratory Last Values WBC 7.9 k/uL (3.8-10.6) 05/20/19 08:30 RBC 4.76 m/uL (3.80-5.40) 05/20/19 08:30 Hgb 14.5 gm/dL (11.4-16.0) 05/20/19 08:30 Hct 45.4 % (34.0-46.0) 05/20/19 08:30 MCV 95.3 fL (80.0-100.0) 05/20/19 08:30 MCH 30.4 pg (25.0-35.0) 05/20/19 08:30 MCHC 31.9 g/dL (31.0-37.0) 05/20/19 08:30 RDW 13.1 % (11.5-15.5) 05/20/19 08:30 Plt Count 222 k/uL (150-450) 05/20/19 08:30 Neutrophils % 78 % 05/20/19 08:30 Lymphocytes % 16 % 05/20/19 08:30 Monocytes % 4 % 05/20/19 08:30 Eosinophils % 1 % 05/20/19 08:30 Basophils % 0 % 05/20/19 08:30 Neutrophils # 6.1 k/uL (1.3-7.7) 05/20/19 08:30 Lymphocytes # 1.3 k/uL (1.0-4.8) 05/20/19 08:30 Monocytes # 0.3 k/uL (0-1.0) 05/20/19 08:30 Eosinophils # 0.1 k/uL (0-0.7) 05/20/19 08:30 Basophils # 0.0 k/uL (0-0.2) 05/20/19 08:30 PT 10.2 sec (9.0-12.0) 05/19/19 08:36 INR 0.9 (<1.2) 05/19/19 08:36 APTT 21.5 sec (22.0-30.0) L 05/19/19 08:36 Sodium 137 mmol/L (137-145) 05/20/19 08:30 Potassium 5.1 mmol/L (3.5-5.1) 05/20/19 08:30 Chloride 101 mmol/L (98-107) 05/20/19 08:30 Carbon Dioxide 29 mmol/L (22-30) 05/20/19 08:30 Anion Gap 7 mmol/L 05/20/19 08:30 BUN 15 mg/dL (7-17) 05/20/19 08:30 Creatinine 0.65 mg/dL (0.52-1.04) 05/20/19 08:30 Est GFR (CKD-EPI)AfAm >90 (>60 ml/min/1.73 sqM) 05/20/19 08:30 Est GFR (CKD-EPI)NonAf 87 (>60 ml/min/1.73 sqM) 05/20/19 08:30 Glucose 191 mg/dL (74-99) H 05/20/19 08:30 POC Glucose (mg/dL) 118 mg/dL (75-99) H 05/19/19 08:31 POC Glu Data Management Analyst [place] 05/19/19 08:31 Calcium 9.2 mg/dL (8.4-10.2) 05/20/19 08:30 Magnesium 2.0 mg/dL (1.6-2.3) 05/19/19 08:36 Total Bilirubin 0.9 mg/dL (0.2-1.3) 05/20/19 08:30 AST 24 U/L (14-36) 05/20/19 08:30 ALT 25 U/L (9-52) 05/20/19 08:30 Alkaline Phosphatase 66 U/L (38-126) 05/20/19 08:30 Ammonia <9 umol/L (<30) 05/19/19 08:36 Creatine Kinase 56 U/L (30-135) 05/19/19 08:36 Troponin I <0.012 ng/mL (0.000-0.034) 05/19/19 08:36 Total Protein 6.5 g/dL (6.3-8.2) 05/20/19 08:30 Albumin 4.0 g/dL (3.5-5.0) 05/20/19 08:30 Triglycerides 42 mg/dL (<150) 05/20/19 08:30 Cholesterol 208 mg/dL (<200) H 05/20/19 08:30 LDL Cholesterol, Calc 114 mg/dL (0-99) H 05/20/19 08:30 HDL Cholesterol 86 mg/dL (40-60) H 05/20/19 08:30 TSH 2.720 mIU/L (0.465-4.680) 05/20/19 08:30 Urine Color Light Yellow 05/19/19 09:46 Urine Appearance Clear (Clear) 05/19/19 09:46 Urine pH 7.0 (5.0-8.0) 05/19/19 09:46 Ur Specific [place] 1.005 (1.001-1.035) 05/19/19 09:46 Urine Protein Negative (Negative) 05/19/19 09:46 Urine Glucose (UA) Negative (Negative) 05/19/19 09:46 Urine Ketones Negative (Negative) 05/19/19 09:46 Urine Blood Negative (Negative) 05/19/19 09:46 Urine Nitrite Negative (Negative) 05/19/19 09:46 Urine Bilirubin Negative (Negative) 05/19/19 09:46 Urine Urobilinogen <2.0 mg/dL (<2.0) 05/19/19 09:46 Ur Leukocyte Esterase Negative (Negative) 05/19/19 09:46 Urine Opiates Screen Not Detected (NotDetected) 05/19/19 09:46 Ur Oxycodone Screen Not Detected (NotDetected) 05/19/19 09:46 Urine Methadone Screen Not Detected (NotDetected) 05/19/19 09:46 Ur Propoxyphene Screen Not Detected (NotDetected) 05/19/19 09:46 Ur Barbiturates Screen Not Detected (NotDetected) 05/19/19 09:46 U Tricyclic Antidepress Not Detected (NotDetected) 05/19/19 09:46 Ur Phencyclidine Scrn Not Detected (NotDetected) 05/19/19 09:46 Ur Amphetamines Screen Not Detected (NotDetected) 05/19/19 09:46 U Methamphetamines Scrn Not Detected (NotDetected) 05/19/19 09:46 U Benzodiazepines Scrn Not Detected (NotDetected) 05/19/19 09:46 Urine Cocaine Screen Not Detected (NotDetected) 05/19/19 09:46 U Marijuana (THC) Screen Not Detected (NotDetected) 05/19/19 09:46 05/20/19 11:25 IDENTIFYING DATA: This patient is a 73-year-old female who was admitted to the mental health unit through the emergency room for confusion and psychosis. HPI: The patient had reportedly presented to the hospital this past Thursday with similar symptoms. She was medically worked up which included a head CT an evaluation by the emergency room physician. She was seen by the emergency psychiatric nurse and she was cleared to return home. It is reported that the patient had been accidentally inappropriately taking doses of baclofen [place] prednisone and nitrofurantoin. She states some of those were meant to be as needed she was later informed however she was taking those every 4 hours [id number]. She described auditory and visual hallucinations. She described feeling confused. She reported having difficulty sleeping she was irritable and crying. She does describe a chronic history of sleep disturbance. She does feel tired. She indicates her mood is better today. She states that she's been constipated, most likely due to use of [place], but feels better as she was able to have a bowel movement. She is reporting no suicidal ideation. She states at times she feels sad and has some hopeless thoughts. She describes financial difficulties. She reports no homicidal ideation. She is endorsing no current auditory or visual hallucinations or specific delusions. She describes no history of hypomanic or manic episodes. The emergency psychiatric assessment suggests that she may have anxiety symptoms typically but the patient denies having any generalized anxiety or history of panic attacks. She lives alone and states she has no firearms at home. She indicates that she can be sad at times but primarily she describes this in context of financial issues. She states that her family doesn't want her to drive anymore and they [place] area. She is processing these potential losses of independence. PAST PSYCHIATRIC HISTORY: No prior inpatient psychiatric hospitalizations no history of suicide attempts she states she is not prescribed any psychotropic medication PMH: Hypertension, 2 recent falls ALLERGIES: NO KNOWN DRUG ALLERGIES MEDICATIONS: Norvasc, aspirin, Colace, Zestril, melatonin, MiraLAX CHEMICAL DEPENDENCY HISTORY: No reported use of marijuana or illicit drugs. She states she will infrequently uses alcohol but when she does she will have 6 beers, she has never been placed in residential treatment for chemical dependency reasons FAMILY PSYCHIATRIC HISTORY: None reported, no suicides in the family FAMILY CHEMICAL DEPENDENCY HISTORY: None reported SOCIAL HISTORY: The patient is 73 years old she is she lives alone. She has 4 children, 2 daughters 2 sons. She resides in [place] close to [place]. She is in this area visiting her son who lives in [place]. She is a high school graduate, no history of service. She has 2 living brothers for siblings are . 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 No legal history, no abuse history. MENTAL STATUS EXAM: The patient is a female appearing her stated age. She is dressed in hospital gowns. Hygiene grooming adequate. She is noticed to have healing bruises on her left upper extremity. Eye contact is appropriate she is pleasant and cooperative. She indicates her mood is better affect is constricted. She reports no suicidal or homicidal ideation intent or plan. She reports no auditory or visual hallucinations or any specific delusions. There is no observed evidence of psychosis. She demonstrates no tangential thinking loose associations or flight of ideas. She does not appear hypomanic or manic. She demonstrates no verbal or physical aggressiveness or any involuntary repetitive movements. Insight and judgment seem to have improved. She is oriented to person place and date. She was able to register 3 words quickly. After delay of 3 minutes she could recall 2 of them spontaneously and was able to recall the third with a multiple choice cue. When asked for 5 major cities [place] she began naming states. She was prompted and then began naming cities but was only able to generate for forgetting the task was to name 5. She could quickly name the months of the year backwards. With similarity questions she provided concrete answers only. STRENGTHS/WEAKNESSES: Strengths: Housing, support from family weaknesses: Processing potential losses of independence INTELLECTUAL FUNCTIONING: Average IMPRESSIONS: [] 1. Delirium resolving, medication induced, rule out mood disorder PLAN: The patient has been admitted to the mental health unit voluntarily for further evaluation and treatment. It appears she experienced symptoms of delirium due to the accidental overuse of baclofen [place] steroids and nitrofurantoin. The symptoms are clearing. She may have underlying mood or anxiety symptoms that will be further explored. She reports chronic difficulty with sleep. We discussed a trial of Remeron 7.5 mg at bedtime and she is agreeable. She has been seen by internal medicine for routine history and physical exam. Vital signs reviewed. Social work will contact family to obtain collateral information. The patient is asked to participate in the milieu we will monitor her for safety.
[2019-05-20] MEDS: MIRTAZAPINE 15 MG TAB PO SCH (20:31)
[2019-05-20] MEDS: LATANOPROST 0.005% OPHTH DROPS 2.5 ML BTL BOTH EYES SCH (20:33)
[2019-05-21] MEDS: LISINOPRIL 20 MG TAB PO SCH (07:53)
[2019-05-21] MEDS: amLODIPine 10 MG TAB PO SCH (07:53)
[2019-05-21] MEDS: DOCUSATE 100 MG CAP PO SCH ×2 (07:53→20:16)
[2019-05-21] MEDS: ASPIRIN 81 MG PO SCH (07:53)
--- NOTE | 2019-05-21 09:09 | P.PN ---
Progress Note - Text Interval history: The patient is found at the frontshe follows me to an interview room. She indicates her mood is good. She is looking forward to family visiting this evening. She states that the Remeron did help with her sleep. Staff reported she slept only 3 hours. Appetite stable. She describes increased back pain due to not having her shoes we discussed that we would address this so that she would be able to wear her own. She is reporting no symptoms of psychosis. She has been participating in groups. Mental status exam: The patient is alert she is a female appearing her stated age. She is dressed in hospital gowns. Eye contact is appropriate speech is fluent spontaneous nonpressured. She describes her mood as being better. Affect is constricted. She denies having any suicidal or homicidal ideation intent or plan. She is endorsing no symptoms of psychosis there is no observed evidence of psychosis currently. She does not appear hypomanic or manic. She appropriately attends to the conversation. She remains oriented to person place and date. Insight and judgment improving. Plan: Recent delirium resolving, we are offering Remeron at low dose to possibly assist with sleep. We will monitor her for safety and encourage participation in the milieu. Vital signs reviewed. She has had 2 blood pressure elevated readings since being here but several normal readings as well. We will continue to monitor. We will look for input from her family when they visit this evening. I anticipate discharging the patient Thursday.
[2019-05-21] MEDS: LATANOPROST 0.005% OPHTH DROPS 2.5 ML BTL BOTH EYES SCH (20:14)
[2019-05-21] MEDS: MIRTAZAPINE 15 MG TAB PO SCH ×2 (20:16→20:51)
[2019-05-22] MEDS: LISINOPRIL 20 MG TAB PO SCH (07:44)
[2019-05-22] MEDS: amLODIPine 10 MG TAB PO SCH (07:44)
[2019-05-22] MEDS: DOCUSATE 100 MG CAP PO SCH ×3 (07:44→20:37)
[2019-05-22] MEDS: ASPIRIN 81 MG PO SCH (07:44)
--- NOTE | 2019-05-22 13:22 | P.PN ---
Progress Note - Text Interval history: The patient is found in the hallway she follows me to an interview room. She reports that her mood continues to stabilize. She is endorsing no symptoms of psychosis. With insight she states that this was all due to how she was taking her medications. At this point she feels that she was given too many medications and she then misunderstood directions and was taking them too often. Appetite stable. She reports that she slept better last evening. She has no questions regarding the Remeron. Mental status exam: The patient is alert she is pleasant cooperative. She is dressed in her own clothing. She reports her mood is improving affect is bright and euthymic. She denies having any suicidal or homicidal ideation intent or plan. She is reporting no auditory or visual hallucinations or any specific delusions. There is no observed evidence of psychosis. She does not appear hypomanic or manic. She demonstrates no verbal or physical aggressiveness. Insight and judgment grossly intact. She is oriented to person place and date. Speech is fluent spontaneous nonpressured. Thought process is linear. Plan: Delirium resolved, continue Remeron is written to assist with sleep and possible history of depressive symptoms, anticipate discharge tomorrow. Vital signs reviewed.
[2019-05-22] MEDS: LATANOPROST 0.005% OPHTH DROPS 2.5 ML BTL BOTH EYES SCH (20:36)
[2019-05-22] MEDS: MIRTAZAPINE 15 MG TAB PO SCH (20:37)
[2019-05-23 06:29] VITALS: RESP 18; TEMP 97.8
[2019-05-23] MEDS: DOCUSATE 100 MG CAP PO SCH (08:11)
[2019-05-23] MEDS: ASPIRIN 81 MG PO SCH (08:11)
[2019-05-23] MEDS: LISINOPRIL 20 MG TAB PO SCH (08:12)
[2019-05-23] MEDS: amLODIPine 10 MG TAB PO SCH (08:12)
[2019-05-23 09:03] VITALS: BP 134/67; PULSE 86
--- NOTE | 2019-05-23 09:44 | P.DS ---
Providers Date of admission: 05/19/19 12:53 Expected date of discharge: 05/23/19 Attending physician: Nima Rangel Consults: 05/19/19 13:12 Consult Physician Routine Consulting Provider: Harpreet Physician Consult Reason/Comments: H & P and medical care Do you want consulting provider notified?: Yes Primary care physician: Physician Nonstaff - Discharge Diagnosis(es) (1) Delirium Current Visit: Yes Status: Acute Priority: High (2) Depression Current Visit: Yes Status: Acute Priority: Medium Hospital Course: Brief summary of admission note: This patient is a 73-year-old female who was admitted to the mental health unit through the emergency room for acute confusion and psychosis. The patient had been prescribed [place], baclofen, prednisone, and an antibiotic by her primary care physician. These were given all at once and she was confused with directions. She was taking all of these medicines every 4 hours [id number]. Eventuall y she became confused she was experiencing auditory and visual hallucinations. She had difficulty sleeping and was irritable and was tearful. She had presented to the hospital for evaluation and was admitted to the psychiatric unit. For full details please refer to the psychiatric evaluation dated 05/20/2019. Summary of hospital course: The patient was admitted to the mental health unit she signed in voluntarily. We reviewed her presenting symptoms and treatment options. Her presentation appeared to be consistent with delirium. When I met her on the mental health unit it seems that those symptoms had artery begun to resolve. Prior to this whole incident she states that she would continue to experience chronic insomnia and episodes of sadness but they did not seem to last as long as 2 weeks. She did endorse some symptoms of anxiety as well. We discussed using Remeron in low dose to help with some of the symptoms and she was agreeable. She was able to tolerate medication and in fact her sleep improved approximate 7 hours a night. She was seen by internal medicine for routine history and physical exam. The patient was pleasant and cooperative. She attended groups. She had visits from her family. She has a family meeting scheduled this afternoon prior to discharge. She has reported a complete resolution of any symptoms of psychosis. She is oriented to person place and date and is no longer confused. Mental status exam: The patient is a 73-year-old female appearing her stated age. She is dressed in her own clothing. Hygiene and grooming are good. She indicates her mood is good. She is looking forward to being discharged. She reports no suicidal or homicidal ideation intent or plan. She reports no auditory or visual hallucinations or any specific delusions. There is no observed evidence of psychosis. She demonstrates no tangential thinking loose associations or flight of ideas. There is no evidence of hypomania or aby. Insight and judgment are grossly intact. She is oriented to person place and date. She demonstrates no verbal or physical aggressiveness. Affect is euthymic and appropriately expressive. She spontaneously describes future oriented thinking. Impressions 1. Delirium secondary to accidental misuse of medications, depression unspecified Plan: The patient will be discharged mental health unit today following a successful support meeting involving her family. The patient will continue on Remeron 7.5 mg at bedtime. She will continue following up with her primary care physician as needed. Social work will arrange outpatient mental health follow- up. At this time there is no imminent safety risk the patient is appropriate for transition to outpatient care. She is instructed to return to the hospital with any acute safety concerns. Patient Condition at Discharge: Stable Plan - Discharge Summary Discharge Rx Participant: No New Discharge Prescriptions: New Mirtazapine [Remeron] 7.5 mg PO HS #15 tab Continue amLODIPine [Norvasc] 10 mg PO DAILY Lisinopril [Zestril] 20 mg PO DAILY Aspirin EC [Ecotrin Low Dose] 81 mg PO DAILY Latanoprost [Xalatan 0.005%] 1 drop BOTH EYES HS Discharge Medication List Aspirin EC [Ecotrin Low Dose] 81 mg PO DAILY 05/16/19 [History] Lisinopril [Zestril] 20 mg PO DAILY 05/16/19 [History] amLODIPine [Norvasc] 10 mg PO DAILY 05/16/19 [History] Latanoprost [Xalatan 0.005%] 1 drop BOTH EYES HS 05/19/19 [History] Mirtazapine [Remeron] 7.5 mg PO HS #15 tab 05/23/19 [Rx] Follow up Appointment(s)/Referral(s): Nonstaff,Physician [Primary Care Provider] - 1-2 days Activity/Diet/Wound Care/Special Instructions: Activity and diet as tolerated. No guns or weapons in the home. Refrain from alcohol and drugs that are not prescribed by your physician. Take all medications as prescribed by your physicians, and attend all follow up appointments as scheduled. If in need of medication refills, please go to your primary care physician, or your out patient psychiatric provider. If in crisis, please call , or go the nearest ER for an evaluation.
== END 2019-05-23 14:37 | disposition home or self-care (01) | DRG 897 ==
LOC: EC 07:52 → 3MHU 12:53
PROVIDERS: ADMIT Psychiatry & Neurology Psychiatry; ATTEND Psychiatry & Neurology Psychiatry
DX: F11.921 Opioid use, unspecified with intoxication delirium (principal); F05 Delirium due to known physiological condition; F19.921 Other psychoactive substance use, unspecified with intoxication with delirium; F32.9 Major depressive disorder, single episode, unspecified; F51.04 Psychophysiologic insomnia; H40.9 Unspecified glaucoma; I10 Essential (primary) hypertension; K59.03 Drug induced constipation; T40.2X5A Adverse effect of other opioids, initial encounter; Z59.9 Problem related to housing and economic circumstances, unspecified; Z79.82 Long term (current) use of aspirin; Z79.899 Other long term (current) drug therapy; Z90.710 Acquired absence of both cervix and uterus; Z60.2 Problems related to living alone
CPT/HCPCS: 36415; 71046; 80053; 80061; 80306; 81003; 82075; 82140; 82550; 83036; 83735; 84443; 84484; 85025; 85610; 85730; 93005; 96360; 96361; 99285